=== PATIENT | male | born 1950 | race Native Hawaiian/Other Pacific Islander ===

== ENCOUNTER 2021-11-10 08:26 | Day surgery (SDC) | payer MEDICARE, OTHER ==
[~2021-11-10] VITALS: Ht 167.6 cm; Wt 62.0 kg
[2021-11-10] MEDS ORDERED: GABA300 PO (08:46)
[2021-11-10] MEDS ORDERED: HYDROCHLOROTH12.5 MG PO (08:47)
[2021-11-10] MEDS ORDERED: NOVOLOG100 UNIT/2 SC (08:49)
[2021-11-10] MEDS ORDERED: LATA.005SO BOTHEYES (08:50)
[2021-11-10] MEDS ORDERED: LISI5 PO (08:50)
[2021-11-10] MEDS ORDERED: LEVEMIR FL100 UNIT/2 SC (08:50)
[2021-11-10] MEDS ORDERED: ROSU10TA PO (08:51)
[2021-11-10] MEDS ORDERED: TIMO.25OPS BOTHEYES (08:52)
[2021-11-10] MEDS ORDERED: SILVADENE20 G1 TOP (08:52)
--- NOTE | 2021-11-10 12:23 | NUR ---
1140 PATIENT RETURNED FROM THE [facility]IC[facility] AND SBAR RECEIVED FROM KYAW CHRISTOPHER. CHANDU PLACED ON THE MONITOR. VSS. DEXCOM READIN LEFT GROIN STABLE WITH ANGIOSEAL. ALL PULSES DOPPLER. CALLED TO UPDATE ON RETURN TO RECOVERY ADN POTENTIAL DISCAHRGE TIME. CALL LIGHT IN REACH AND PATIENT RESTING WITH EYES CLOSED. SIDE RAILS UP X TWO.
--- NOTE | 2021-11-10 12:33 | NUR ---
1230 LUNCH SERVED. LEFT GROIN STABLE.
--- NOTE | 2021-11-10 12:40 | NUR ---
AT THE BEDSIDE. ASSISTING WITH MEAL.
--- NOTE | 2021-11-10 14:07 | NUR ---
PATIENT IS UP OOB TO THE RESTRROM. SLIGHTLY DIZZY WITH WALKING. ASSISTED BY RN. BACK TO BED, SITTING ON THE SIDE OF THE BED. DEXCOM READING 361, WILL DISE INSULIN WHEN HE ARRIVES HOME. REVIEWED DISCHARGE INSTRUCTIONS AND FOLLOW UP APPOINTMENT WITH THE RUSHTENT AND HIS . COPIES GIVEN TO THE PATIENT. PIV REMOVED AND PRESSURE DRESSING APPLIED. PATIENT DRESSING AND GATHERING BELONGINGS.
--- NOTE | 2021-11-10 14:25 | NUR ---
DR. GARCÍA AT THE BEDSIDE AND SPOKE WITH THE PATIENT AND AT LENGTH.
== END 2021-11-10 14:30 | disposition home or self-care (01) ==
LOC: MHTC 08:26
DX: E11.51 Type 2 diabetes mellitus with diabetic peripheral angiopathy without gangrene (principal); I70.213 Atherosclerosis of native arteries of extremities with intermittent claudication, bilateral legs; I12.9 Hypertensive chronic kidney disease with stage 1 through stage 4 chronic kidney disease, or unspecified chronic kidney disease; E11.22 Type 2 diabetes mellitus with diabetic chronic kidney disease; N18.2 Chronic kidney disease, stage 2 (mild); I25.10 Atherosclerotic heart disease of native coronary artery without angina pectoris; E78.5 Hyperlipidemia, unspecified; Z95.820 Peripheral vascular angioplasty status with implants and grafts; Z79.4 Long term (current) use of insulin
CPT/HCPCS: 37229; 75625; 75716; 75774; 76937; 99152; 99153; C1714; C1725; C1760; C1769; C1887; C1894; J1644; J2250; J3010; J7030; J7050; Q9967

== ENCOUNTER 2021-11-19 02:53 | Day surgery (SDC) | payer MEDICARE ==
[~2021-11-19 02:53] MED LIST: GABA300 PO; HYDROCHLOROTH12.5 MG PO; LATA.005SO BOTHEYES; LEVEMIR FL100 UNIT/2 SC; LISI5 PO; NOVOLOG100 UNIT/2 SC; ROSU10TA PO; SILVADENE20 G1 TOP; TIMO.25OPS BOTHEYES
== END 2021-11-19 22:59 | disposition home or self-care (01) ==
LOC: WOUND 02:53
DX: E11.621 Type 2 diabetes mellitus with foot ulcer (principal); L97.518 Non-pressure chronic ulcer of other part of right foot with other specified severity; L97.521 Non-pressure chronic ulcer of other part of left foot limited to breakdown of skin; E11.51 Type 2 diabetes mellitus with diabetic peripheral angiopathy without gangrene; E11.42 Type 2 diabetes mellitus with diabetic polyneuropathy; I87.2 Venous insufficiency (chronic) (peripheral); Z88.8 Allergy status to other drugs, medicaments and biological substances
CPT/HCPCS: G0463

== ENCOUNTER 2021-11-26 01:16 | Day surgery (SDC) | payer MEDICARE | END 2021-11-26 22:41 | disposition home or self-care (01) | LOC: WOUND 01:16 | DX: E11.621 Type 2 diabetes mellitus with foot ulcer (principal); I87.2 Venous insufficiency (chronic) (peripheral); E11.42 Type 2 diabetes mellitus with diabetic polyneuropathy; L97.521 Non-pressure chronic ulcer of other part of left foot limited to breakdown of skin | CPT/HCPCS: G0463 ==

== ENCOUNTER 2021-12-03 00:41 | Day surgery (SDC) | payer MEDICARE | END 2021-12-03 22:46 | disposition home or self-care (01) | LOC: WOUND 00:41 | DX: E11.621 Type 2 diabetes mellitus with foot ulcer (principal); L97.519 Non-pressure chronic ulcer of other part of right foot with unspecified severity; E11.51 Type 2 diabetes mellitus with diabetic peripheral angiopathy without gangrene; I87.2 Venous insufficiency (chronic) (peripheral); E11.42 Type 2 diabetes mellitus with diabetic polyneuropathy | CPT/HCPCS: G0463 ==

== ENCOUNTER 2021-12-10 02:33 | Day surgery (SDC) | payer MEDICARE | END 2021-12-10 23:07 | disposition home or self-care (01) | LOC: WOUND 02:33 | DX: E11.621 Type 2 diabetes mellitus with foot ulcer (principal); L97.519 Non-pressure chronic ulcer of other part of right foot with unspecified severity; E11.51 Type 2 diabetes mellitus with diabetic peripheral angiopathy without gangrene; E11.42 Type 2 diabetes mellitus with diabetic polyneuropathy; I87.2 Venous insufficiency (chronic) (peripheral); E11.52 Type 2 diabetes mellitus with diabetic peripheral angiopathy with gangrene; I96 Gangrene, not elsewhere classified | CPT/HCPCS: G0463 ==

== ENCOUNTER 2021-12-16 02:03 | Day surgery (SDC) | payer MEDICARE | END 2021-12-16 23:13 | disposition home or self-care (01) | LOC: WOUND 02:03 | DX: E10.621 Type 1 diabetes mellitus with foot ulcer (principal); L97.519 Non-pressure chronic ulcer of other part of right foot with unspecified severity; E10.42 Type 1 diabetes mellitus with diabetic polyneuropathy; E10.52 Type 1 diabetes mellitus with diabetic peripheral angiopathy with gangrene; I96 Gangrene, not elsewhere classified; I87.2 Venous insufficiency (chronic) (peripheral) | CPT/HCPCS: G0463 ==

== ENCOUNTER 2021-12-30 04:27 | Day surgery (SDC) | payer MEDICARE | END 2021-12-30 23:07 | disposition home or self-care (01) | LOC: WOUND | DX: E11.621 Type 2 diabetes mellitus with foot ulcer (principal); L97.512 Non-pressure chronic ulcer of other part of right foot with fat layer exposed; E11.52 Type 2 diabetes mellitus with diabetic peripheral angiopathy with gangrene; I96 Gangrene, not elsewhere classified; E11.42 Type 2 diabetes mellitus with diabetic polyneuropathy; I87.2 Venous insufficiency (chronic) (peripheral) | CPT/HCPCS: G0463 ==

== ENCOUNTER 2022-02-10 06:13 | Day surgery (SDC) | payer MEDICARE ==
[~2022-02-10] VITALS: Ht 167.6 cm; Wt 59.0 kg
[2022-02-10] MEDS ORDERED: Aspir 8181 MG (07:11)
--- NOTE | 2022-02-10 07:49 | NUR ---
02/10/22 0749 GARRET ALVARADO LIDOCAINE 2% INJECTED INTO RIGHT FOOT AT BEGINNING OF CASE BY DR. STRONG.
== END 2022-02-10 09:30 | disposition home or self-care (01) ==
LOC: ORSCSDS 06:13
PROVIDERS: Podiatrist Foot & Ankle Surgery
PROC: 0Y6P0Z0 Detachment at Right 1st Toe, Complete, Open Approach (ICD-10-PCS; principal; 2022-02-10 07:30)
DX: L97.521 Non-pressure chronic ulcer of other part of left foot limited to breakdown of skin (principal); E10.52 Type 1 diabetes mellitus with diabetic peripheral angiopathy with gangrene; I96 Gangrene, not elsewhere classified; E10.65 Type 1 diabetes mellitus with hyperglycemia; I12.9 Hypertensive chronic kidney disease with stage 1 through stage 4 chronic kidney disease, or unspecified chronic kidney disease; E10.22 Type 1 diabetes mellitus with diabetic chronic kidney disease; N18.2 Chronic kidney disease, stage 2 (mild); G47.33 Obstructive sleep apnea (adult) (pediatric); I25.10 Atherosclerotic heart disease of native coronary artery without angina pectoris; Z79.899 Other long term (current) drug therapy; Z79.82 Long term (current) use of aspirin
CPT/HCPCS: 82947; 88305; 88311; J0171; J0690; J1100; J2370; J2405; J2704; J3010; J7120

== ENCOUNTER 2022-10-09 16:34 | Inpatient (IN) | payer MEDICARE ==
[~2022-10-09] VITALS: Ht 167.6 cm; Wt 61.4 kg
[~2022-10-09 16:34] MED LIST changes: +Aspir 8181 MG; +ONDA4ODT MM
[2022-10-09 17:37] LABS: BASOPHILS ABSOLUTE AUTO 0.01 K/mm3 (0.00-0.23); BASOPHILS PERCENT AUTO 0 % (0-2); EOSINOPHILS ABSOLUTE AUTO 0.01 K/mm3 (0.00-0.68); EOSINOPHILS PERCENT AUTO 0 % (0-6); Hematocrit 36.7 % (37.0-53.0); Hemoglobin 12.3 g/dL (13.5-17.5); IMMATURE GRAN ABSOLUTE AUTO 0.04 K/mm3 (0.00-0.10); IMMATURE GRAN PERCENT AUTO 1 % (0-1); LYMPHOCYTES ABSOLUTE AUTO 0.96 K/mm3 (0.84-5.20); LYMPHOCYTES PERCENT AUTO 12 % (21-46); MONOCYTES ABSOLUTE AUTO 0.41 K/mm3 (0.16-1.47); MONOCYTES PERCENT AUTO 5 % (4-13); Mean Corpuscular HGB Conc 33.5 g/dL (31.5-36.5); Mean Corpuscular Volume 90 fL (80-100); NEUTROPHILS ABSOLUTE AUTO 6.69 K/mm3 (1.96-9.15); NEUTROPHILS PERCENT AUTO 83 % (41-73); Platelet Count 407 K/mm3 (150-400); RDW Coefficient Variation 13.3 % (11.7-14.2); RDW Standard Deviation 43.9 fL (35.1-46.3); White Blood Cell Count 8.12 K/mm3 (4.00-11.30)
[2022-10-09 17:59] LABS: Albumin, Blood 2.2 g/dL (3.4-5.0); Albumin/Globulin Ratio 0.5 (0.8-1.8); Bilirubin, Total 0.5 mg/dL (0.1-1.0); Calcium, Blood 8.7 mg/dL (8.5-10.1); Creatinine, Blood 0.78 mg/dL (0.60-1.20); Globulin, Blood 4.3 g/dL (2.2-4.0); Potassium, Blood 4.2 mmol/L (3.5-5.5); Total Protein, Blood 6.5 g/dL (6.4-8.2)
[2022-10-09] MEDS ORDERED: TIMO10T (19:06)
[2022-10-09] MEDS ORDERED: LATANOPROST2.5 M3 BOTHEYES (22:29)
[2022-10-09] MEDS ORDERED: BETIMOL5 ML BOTHEYES (22:29)
[2022-10-10 01:49] LABS: Albumin, Blood 1.9 g/dL (3.4-5.0); Albumin/Globulin Ratio 0.5 (0.8-1.8); Bilirubin, Total 0.5 mg/dL (0.1-1.0); Bun/Creatinine Ratio 25.3 (12.0-20.0); Calcium, Blood 7.7 mg/dL (8.5-10.1); Creatinine, Blood 0.79 mg/dL (0.60-1.20); Globulin, Blood 3.9 g/dL (2.2-4.0); Potassium, Blood 3.9 mmol/L (3.5-5.5); Total Protein, Blood 5.8 g/dL (6.4-8.2)
[2022-10-10 02:01] LABS: BASOPHILS ABSOLUTE AUTO 0.01 K/mm3 (0.00-0.23); BASOPHILS PERCENT AUTO 0 % (0-2); EOSINOPHILS ABSOLUTE AUTO 0.01 K/mm3 (0.00-0.68); EOSINOPHILS PERCENT AUTO 0 % (0-6); Hematocrit 32.5 % (37.0-53.0); Hemoglobin 11.3 g/dL (13.5-17.5); IMMATURE GRAN ABSOLUTE AUTO 0.06 K/mm3 (0.00-0.10); IMMATURE GRAN PERCENT AUTO 1 % (0-1); LYMPHOCYTES ABSOLUTE AUTO 1.17 K/mm3 (0.84-5.20); LYMPHOCYTES PERCENT AUTO 17 % (21-46); MONOCYTES ABSOLUTE AUTO 0.41 K/mm3 (0.16-1.47); MONOCYTES PERCENT AUTO 6 % (4-13); Mean Corpuscular HGB Conc 34.8 g/dL (31.5-36.5); Mean Corpuscular Volume 89 fL (80-100); Mean Platelet Volume 9.7 fL (9.1-12.4); NEUTROPHILS ABSOLUTE AUTO 5.08 K/mm3 (1.96-9.15); NEUTROPHILS PERCENT AUTO 75 % (41-73); Platelet Count 335 K/mm3 (150-400); RDW Coefficient Variation 13.4 % (11.7-14.2); Red Blood Cell Count 3.64 M/mm3 (4.30-5.90); White Blood Cell Count 6.74 K/mm3 (4.00-11.30)
--- NOTE | 2022-10-10 05:25 | NUR ---
A/OX4; CALM AND COOPERATIVE. ROBINSON; HEARING AIDS IN CONTAINER AT BEDSIDE. 1X ASSIST (USES CANE AT BASELINE - IN ROOM WITH PATIENT) DENIES PAIN AT THIS TIME. SOB WITH EXERTION. LUNGS DIMINISHED THROUGHOUT. 2 L VIA NC; SPO2 88%. INCREASED TO 4 L TO MAINTAIN SATS IN LOW 90s. POOR APPETITE /PO INTAKE WITH DX DIABETES TYPE 1; DISCUSSED WITH MD; IVF PER ORDERS. BED ALARM SET. SLEEP PROMOTED. CALL LIGHT IN REACH; ENCOURAGED TO MAKE NEEDS KNOWN. COVID + PRECAUTIONS MAINTAINED.
--- NOTE | 2022-10-10 13:06 | NUR ---
1100 PT FELL RN HEARD BED ALARM GOING OFF WHILE STANDING OUTSIDE OF PT'S ROOM. RN OPENED THE DOOR TO SEE THE PT'S UPPER HALF FOF THE BODY OOB ON THE FLOOR. PT'S LOWER HALF OF THE BODY WAS STILL BARELY IN BED. PT MOOVED TO FLOOR SAFELY. VITALS TAKEN. PT UNABLE TO ANSWER ANY QUESTIONS. NO NOTED DEFORMITIES.REDDENED AREA ON RIGHT SIDE OF PT'S FOREHEAD NOTED. MD RAMACHANDRAN CALLED AND NOTIFIED. STAT HEAD CT ORDERED. PT TO BE TRANSFERED TO PCU. REPORT CALLED TO PCU NURSE. ALL QUESTIONS ANSWERED. PT'S MEDS TUBED DOWN.
--- NOTE | 2022-10-10 14:06 | NUR ---
1000 PT HAS DECLINED IN CONDITION SINCE SHIFT ASSESSMENT THIS AM. PT IS UNABLE TO ANSWER QUESTIONS, HAS INCREASED CONFUSION, APPEARS PALE, AND IS LETHARGIC. MD BURDEN AWARE-MD JUST LEFT PT'S ROOM FOR VISIT.
--- NOTE | 2022-10-10 15:09 | NUR ---
PT ARRIVED TO [facility] FROM MEDICAL FLOOR APROX 1216. PT TO CT SCAN. PT IS CONFUSED, PALE, LETHARGIC, NOT FOLLOWING DIRECTIONS. PT HAD SEVERAL EPISODES OF COUGHING WITH MOIST SECRETIONS THAT HE APPEARS UNABLE TO CLEAR. 02 NEEDS HAVE INCREASED FROM 4L TO 9-10L HI FLOW NC. PT IS NOTED BY THIS RN TO BE COUGHING AND GAGGING ON HIS SECRETIONS, PT IS UNCOOPERATIVE WITH SUCTIONING, CLOSES HIS TEETH AND DOES NOT ALLOW YANKUAER TO PASS. DR RAMACHANDRAN NOTIFIED AND IN ROOM TO ASSESS PT AND TALK WITH PT'S AT BEDSIDE. PT'S REQUESTS [facility], THEY HAVE BEEN PAGED. PLAN TO TRANSFER PT TO ICU FOR LIKELY INTUBATION. REPORT CALLED TO [facility].
[2022-10-10 15:28] LABS: PCO2 Arterial 37.6 mmHg (35-45); PO2 Arterial 67.9 mmHg (80-100); pH Blood Arterial 7.43 (7.35-7.45)
[2022-10-10 16:26] LABS: Albumin, Blood 2.4 g/dL (3.4-5.0); Anion Gap 5 mmol/L (6-16); Blood Urea Nitrogen 25 mg/dL (8-24); Bun/Creatinine Ratio 37.5 (12.0-20.0); CO2, Blood 25 mmol/L (21-32); Calcium, Blood 8.4 mg/dL (8.5-10.1); Chloride, Blood 107 mmol/L (98-108); Creatinine, Blood 0.67 mg/dL (0.60-1.20); Glomerular Filtration Rate 99 (60-); Glucose, Blood 161 mg/dL (70-99); Phosphorus, Blood 3.1 mg/dL (2.5-4.9); Potassium, Blood 4.3 mmol/L (3.5-5.5); Sodium, Blood 137 mmol/L (136-145)
[2022-10-10 16:46] LABS: Source, Urine Foley catheter
[2022-10-10 16:49] LABS: Appearance, Urine Clear (Clear); Bilirubin, Urine Neg (Neg); Blood, Urine 1+ (Neg); Glucose Qualitative, Urine Neg (Neg); Ketones, Urine 2+ (Neg); Leukocyte Esterase, Urine Neg (Neg); Nitrite, Urine Neg (Neg); Protein, Urine 2+ (Neg); Urobilinogen, Urine 1+ (Normal)
[2022-10-10 16:59] LABS: Color, Urine Yellow (P-Yellow)
[2022-10-10 17:00] LABS: Hyaline Casts 0-2 /lpf (0-2)
[2022-10-10 17:01] LABS: Bacteria Few /hpf; Red Blood Cells, Urine 0-2 /hpf (0-2); Squamous Epithelial Cells Not Seen /hpf (Few); White Blood Cells, Urine 0-2 /hpf (0-5)
--- NOTE | 2022-10-10 17:23 | NUR ---
Call back - Anointing of the sick requested by pt's spouse Nat. Nat explains pt is Rastafari and his son is very mormon and was requesting the intervention. Anointing of the sick performed. Pt was initially tearful, but it was explained the function of the prayer was for healing. He nodded his head with understanding.Spouse verbalized gratitude for the intervention. Son will be flying up to [place]. Pt encouraged to rest and rely on his erica for strength.
--- NOTE | 2022-10-10 18:22 | NUR ---
SHIFT SUMMARY.... PT ARRIVED FROM PCU AT 1545. PT'S VS STABLE. HE WAS ON 10L HI FLOW NC WITH O2 SATS >95% L/S VERY DIM T/O. PT WAS CONFUSED AND NONVERBAL. A HILLMAN WAS PLACED FOR STRICT I'S & O'S ONCE HILLMAN WAS PLACED 850MLS OF DARK ZULY URINE WAS DRAINED FROM HIS BLADDER. UA WITH CULTURE WAS SENT TO THE LAB. AFTER THE PT WAS SETTLED IN THE BED HE BECAME VERY AGITATED AND ATTEMPTED TO PULL OFF HIS NC, IVs AND HILLMAN WELL ATTEMPT TO CLIMB OUT OF BED. IT TOOK 3 STAFF MEMBERS TO KEEP THE PT SAFELY IN BED. THE PT WAS STARTED ON PRECEDEX AT 0.4MCG/KG/HR THIS IS CURRENTLY WORKING WELL TO KEEP THE PT COMFORTABLE AND CALM. THE PT'S WAS AT THE BEDSIDE, SHE WAS UPDATED BY DR. YU AND . WILL CONTINUE TO MONITOR UNTIL REPORT IS GIVEN TO ONCOMING RN.
--- NOTE | 2022-10-10 20:32 | NUR ---
ASSUMED CARE PT APPEARS TO BE A&O X2-3. PT IS NON-VERBAL AT THIS TIME AND MUMBLES WHEN ASKED QUESTIONS. PT DOES NOD HEAD APPROPRIATELY, EXCEPT WHEN ASKED IF HIS BIRTHYEAR WAS 1961, PT NODDED YES (IT'S 1951). PT WAS ABLE TO CONFIRM THAT HE KNEW HE WAS IN [place], IN THE HOSPITAL, AND KNEW WHY HE WAS HERE (WOULD ASK PT IF HE WAS IN [place], HE SHOOK HIS HEAD, IF HE WAS IN [place], NODDED, ETC.). SPO2 >92% ON HFNC; MAP >65 ON 2MCG/MIN. PT IS CURRENTLY RESTING/SLEEPING, WAS ABLE TO REDIRECT PT EASILY WHEN PT TRIED TO GET OUT OF BED WHILE PERFORMING MY ASSESSMENT. PRECEDEX @ 0.3MCG/KG/HR; NS @ 150MLS/HR, WILL CHANGE TO 75MLS/HR AFTER FIRST LITER, PER ORDER. UPDATED AND SON ON PT'S CONDITION. SON IS A NURSE PRACTITIONER FROM [place] WHO WILL BE VISITING TOMORROW.
--- NOTE | 2022-10-11 00:25 | NUR ---
UPDATE DURING MIDNIGHT ASSESSMENT NOTICED THAT PT'S RIGHT PUPIL WAS SMALLER THAN LEFT 1:3. PT'S NEURO STATUS HAS NOT CHANGED. CONFIRMED W/ SECOND RN. CALLED TO ASK IF PT HAD ANY HISTORY OF EYE SURGERY; PT HAS HAD GLAUCOMA AND CATARACT SURGERY. NO FACIAL DROOPING NOTICED, PT WAS ABLE TO STICK OUT TONGUE STRAIGHT. WAS UNABLE TO GET PT TO SQUEEZE BOTH FINGERS, UNABLE TO ASSESS BILATERAL STRENGTH. BOTH PUPILS ARE REACTIVE TO LIGHT.
[2022-10-11 03:25] LABS: BASOPHILS ABSOLUTE AUTO 0.01 K/mm3 (0.00-0.23); BASOPHILS PERCENT AUTO 0 % (0-2); EOSINOPHILS PERCENT AUTO 0 % (0-6); Hematocrit 34.4 % (37.0-53.0); Hemoglobin 11.9 g/dL (13.5-17.5); IMMATURE GRAN ABSOLUTE AUTO 0.04 K/mm3 (0.00-0.10); IMMATURE GRAN PERCENT AUTO 1 % (0-1); LYMPHOCYTES ABSOLUTE AUTO 1.39 K/mm3 (0.84-5.20); LYMPHOCYTES PERCENT AUTO 16 % (21-46); MONOCYTES ABSOLUTE AUTO 0.33 K/mm3 (0.16-1.47); MONOCYTES PERCENT AUTO 4 % (4-13); Mean Corpuscular HGB 30.5 pg (26.0-34.0); Mean Corpuscular HGB Conc 34.6 g/dL (31.5-36.5); Mean Corpuscular Volume 88 fL (80-100); Mean Platelet Volume 9.2 fL (9.1-12.4); NEUTROPHILS ABSOLUTE AUTO 6.78 K/mm3 (1.96-9.15); NEUTROPHILS PERCENT AUTO 79 % (41-73); Platelet Count 310 K/mm3 (150-400); RDW Coefficient Variation 13.4 % (11.7-14.2); RDW Standard Deviation 43.7 fL (35.1-46.3); White Blood Cell Count 8.55 K/mm3 (4.00-11.30)
[2022-10-11 03:52] LABS: Albumin, Blood 2.2 g/dL (3.4-5.0); Albumin/Globulin Ratio 0.6 (0.8-1.8); Bilirubin, Total 0.5 mg/dL (0.1-1.0); Bun/Creatinine Ratio 46.7 (12.0-20.0); Calcium, Blood 8.3 mg/dL (8.5-10.1); Creatinine, Blood 0.64 mg/dL (0.60-1.20); Globulin, Blood 3.8 g/dL (2.2-4.0); Magnesium, Blood 2.2 mg/dL (1.6-2.4); Phosphorus, Blood 3.2 mg/dL (2.5-4.9); Potassium, Blood 4.3 mmol/L (3.5-5.5)
--- NOTE | 2022-10-11 05:17 | NUR ---
SHIFT SUMMARY PT CONTINUES TO BE CONFUSED AND MUMBLES IN RESPONSE. NODS/SHAKES HEAD APPROPRIATELY TO MOST QUESTIONS. ORIENTED TO SELF, PLACE ([facility]), FOLLOWS COMMANDS INTERMITTENTLY. NEUROLOGICALLY NO APPARENT CHANGES T/O NIGHT. PT WAS RESTLESS, BUT EASILY REDIRECTABLE. RIGHT ARM IS FLACCID, BUT DURING LAST REPOSITIONING PT WAS ABLE TO PROVIDE RESISTANCE W/ RIGHT ARM; RIGHT PUPIL STILL SMALLER THAN LEFT. SPO2 >92% ON 10L HFNC; MAP >65. SBP IN THE 110-120'S. HILLMAN CATHETER PATENT AND DRAINING TO GRAVITY. PT'S WEDDING RING IN CUP W/ PT LABEL, LOCKED IN MEDICAL LOCKBOX; WILL TELL AM NURSE TO GIVE TO .
--- NOTE | 2022-10-11 06:09 | NUR ---
UPDATE PT'S SON GIVEN CALL FOR AN UPDATE ON PT (PT'S SON REQUESTED UPDATE), PT'S SON TO BE IN DURING THE AM.
--- NOTE | 2022-10-11 07:47 | NUR ---
AM NOTE... ASSUMED CARE OF PT AT 0700, PT IS CONFUSED, MOANING AND ATTEMPTING TO CLIMB OUT OF BED. HE IS ON 0.3MCG/KG/HR OF PRECEDEX THIS WAS INCREASED TO 0.5MCG/KG/HR. HE WAS ON 10L HI FLOW NC THE PT STARTED TO DESAT DOWN TO 79% IT WAS TURNED UP TO 15L HI FLOW NC AND HIS O2 SATS IMPROVED TO 87-89% RT WAS CALLED AND THE PT WAS CHANGED OVER TO THE AIRVO AT 50L AND 65% WITH O2 SATS >90%. L/S ARE DIM AND COARSE T/O WITH FINE CRACKLES NOTED IN THE BASES, RR IS IN THE 20'S. HE IS IN SR IN THE 80'S-90'S BP IS STABLE WITH MAPS >65. NO SWELLING OR EDEMA IS NOTED ON ASSESSMENT. BT PRESENT AND HYPOACTIVE, ABD IS SOFT AND NONTENDER TO PALPATION. TEMP HILLMAN IS PATENT AND DRAINING TO GRAVITY. WILL CONTINUE TO MONITOR.
--- NOTE | 2022-10-11 10:17 | NUR ---
PT UPDATE... AT APROX 0930 THE PT WAS TAKEN TO CT FOR CT OF HIS HEAD TO R/O STROKE. DURING AM ORAL CARE THIS RN NOTED THE PT'S TONGUE DEVIATED TOWARDS THE LEFT, ORAL CARE WAS DONE DURING THIS TIME AND HIS TONGUE WAS REASSESSED AND THE LEFT SIDED DEVIATION WAS STILL NOTED. PT WAS TAKEN TO CT SCAN ON THE AIRVO AT 50L AND 65% AND PRECEDEX GTT AT 1.4MCG/KG/HR, ONCE BACK IN THE ROOM THE PT STARTED TO DESAT DOWN INTO THE LOW 80'S, RT WAS STILL IN THE ROOM, AIRVO SETTINGS WERE MAXED OUT AND THE PT'S O2 SATS STILL DID NOT IMPROVE, HE WAS CHANGED TO THE AIRVO MASK AND THEN HE WAS CHANGED TO THE BIPAP. CURRENT SETTINGS ARE 14/10 AND 100% WITH O2 SATS 90-93%. L/S ARE NOTED TO HAVE INCREASED RHONCHI T/O ALL LUNG SULLIVAN. DR. RAMACHANDRAN AND DR. YU NOTIFIED. WILL CONTINUE TO MONITOR.
--- NOTE | 2022-10-11 11:44 | NUR ---
Call back - Spoke with who reports pt's son is requesting a [employer] for sacrament of the sick. Contacted Father Andrea who states he will be able to come at 1400. Updated
--- NOTE | 2022-10-11 13:33 | NUR ---
PT UPDATE.... FAMILY AT THE BEDSIDE WITH THE PT, THE PT'S O2 SATS HAVE BEEN DOWN AT 84-87%, RT WAS CALLED AND CHANGES WERE MADE TO THE BIPAP BUT DID NOT IMPROVE HIS O2 SATS. DR. RAMACHANDRAN WAS NOTIFIED WELL CACHORRO PALLIATIVE CARE RN. FAMILY MET WITH CACHORRO RN AND FATHER SHANIQUA CAME TO THE BEDSIDE FOR THE PT. DR. RAMACHANDRAN AT THE BEDSIDE WELL DURING THIS TIME SPOKE WITH THE FAMILY AND THE FAMILY DECIDED TO MAKE THE PT COMFORT CARE. WILL CONTINUE TO MONITOR
--- NOTE | 2022-10-11 16:48 | NUR ---
PT .... AT 1350 THE PT WAS MADE COMFORT CARE PER FAMILY WISHES. HE WAS MEDICATED PER EMAR FOR COMFORT BUT CONTINUED ON THE BIPAP PER FAMILY REQUEST UNTIL THE PT'S OTHER SON ARRIVED. AT 1542 THE PT WAS MEDICATED PER EMAR AGAIN AND THE BIPAP WAS REMOVED PER FAMILY REQUEST. THE PT AT 1559. THE PT'S FAMILY WAS GIVEN THEIR TIME IN THE ROOM. ALL OF THE PT'S BELONGINGS WERE PACKED AND GIVEN TO THE INCLUDING HIS WEDDING RING, 2 HEARING AIDS, HIS CANE AND HIS CLOTHES.
== END 2022-10-11 15:59 | DRG 177 ==
LOC: ER 16:34 → MEDS 16:35 → ICUW 10-10 00:41 → PCU 10-10 12:22 → ICUW 10-10 15:33
PROVIDERS: Family Medicine; Physician Assistant; ADMIT Internal Medicine
PROC: 3E033XZ Introduction of Vasopressor into Peripheral Vein, Percutaneous Approach (ICD-10-PCS; principal; 2022-10-10)
PROC: 4A033R1 Measurement of Arterial Saturation, Peripheral, Percutaneous Approach (ICD-10-PCS; 2022-10-10)
PROC: 3E0333Z Introduction of Anti-inflammatory into Peripheral Vein, Percutaneous Approach (ICD-10-PCS; 2022-10-10)
PROC: XW0DXM6 Introduction of Baricitinib into Mouth and Pharynx, External Approach, New Technology Group 6 (ICD-10-PCS; 2022-10-10)
PROC: XW033E5 Introduction of Remdesivir Anti-infective into Peripheral Vein, Percutaneous Approach, New Technology Group 5 (ICD-10-PCS; 2022-10-10)
PROC: 3E02340 Introduction of Influenza Vaccine into Muscle, Percutaneous Approach (ICD-10-PCS; 2022-10-10)
PROC: 0T9B70Z Drainage of Bladder with Drainage Device, Via Natural or Artificial Opening (ICD-10-PCS; 2022-10-10)
PROC: 30233J1 Transfusion of Nonautologous Serum Albumin into Peripheral Vein, Percutaneous Approach (ICD-10-PCS; 2022-10-10)
PROC: 5A09357 Assistance with Respiratory Ventilation, Less than 24 Consecutive Hours, Continuous Positive Airway Pressure (ICD-10-PCS; 2022-10-11)
DX: U07.1 COVID-19 (principal); I63.413 Cerebral infarction due to embolism of bilateral middle cerebral arteries; J12.82 Pneumonia due to coronavirus disease 2019; J96.01 Acute respiratory failure with hypoxia; J15.9 Unspecified bacterial pneumonia; L97.909 Non-pressure chronic ulcer of unspecified part of unspecified lower leg with unspecified severity; R47.01 Aphasia; G81.91 Hemiplegia, unspecified affecting right dominant side; Z51.5 Encounter for palliative care; Z66 Do not resuscitate; R41.0 Disorientation, unspecified; R60.9 Edema, unspecified; E10.22 Type 1 diabetes mellitus with diabetic chronic kidney disease; I12.9 Hypertensive chronic kidney disease with stage 1 through stage 4 chronic kidney disease, or unspecified chronic kidney disease; N18.9 Chronic kidney disease, unspecified; E78.5 Hyperlipidemia, unspecified; E10.51 Type 1 diabetes mellitus with diabetic peripheral angiopathy without gangrene; E10.42 Type 1 diabetes mellitus with diabetic polyneuropathy; I87.2 Venous insufficiency (chronic) (peripheral); H40.9 Unspecified glaucoma; R79.89 Other specified abnormal findings of blood chemistry; Z88.8 Allergy status to other drugs, medicaments and biological substances; Z79.899 Other long term (current) drug therapy; Z79.4 Long term (current) use of insulin; Z23 Encounter for immunization; Z89.411 Acquired absence of right great toe; Z79.811 Long term (current) use of aromatase inhibitors
CPT/HCPCS: 36415; 36600; 51702; 70450; 71045; 71046; 80053; 80069; 81001; 82330; 82803; 82947; 83605; 83690; 83735; 83880; 84100; 84145; 85025; 90686; 93005; 93010; 94660; 94762; 96360; 96361; 99285-25; A9270; C8929; C9399; G0378; J0248; J0456; J0696; J1100; J1650; J1815; J2060; J2270; J2930; J7030; J7042; J7050; J7060; P9047; Q9957